=== PATIENT | female | born 1965 | race Native Hawaiian/Other Pacific Islander ===

== ENCOUNTER 2018-11-19 12:06 | Inpatient (IN) | payer OTHER ==
[2018-11-19] VITALS (13 sets, daily range): BP systolic 112–157; BP diastolic 58–99; PULSE 73–88; TEMP 97.5–98.3
[~2018-11-19] VITALS: Ht 154.9 cm; Wt 80.1 kg
[2018-11-19] MEDS ORDERED: ZESTRIL 20MG TA20 MG PO (13:46)
[2018-11-19] MEDS ORDERED: ASPIRIN 81M81 MG/TA2 PO (13:46)
[2018-11-19] MEDS ORDERED: DIABETA 2.5MG2.5 MG PO (13:46)
[2018-11-19] MEDS ORDERED: GLUCOPHAGE500 MG/TAB PO (13:47)
[2018-11-19] MEDS ORDERED: TOPROL XL 50MG50 MG PO (13:47)
[2018-11-19] MEDS ORDERED: LIPITOR20 MG PO (14:11)
--- NOTE | 2018-11-19 15:08 | NUR ---
Pt arrived to room 316 via EMS from [facility]. She is awake and A/Ox4. She is independent in her transfer. Heparin gtt infusing, paused due to protocol from being from another facility. Hep Xa obtained, heparin gtt put on hold per protocol due to lab level being high. She remains NPO for upcoming heart cath. Pt was oriented to room and to staff, expressed understanding. Meds/allergies/pharm reviewed. Pt expressed understanding.
[2018-11-19] MEDS ORDERED: MOBIC 7.5MG7.5 MG (15:26)
--- NOTE | 2018-11-19 16:47 | NUR ---
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
--- NOTE | 2018-11-19 17:04 | NUR ---
ALL MEDICATIONS GIVEN VORB WITH MD. SEE MERGE FOR ALL MEDICATION ADMIN TIMES. SEE MERGE FOR ALL RASS ASSESSMENTS DURING AND POST PROCEDURE. POSITIVE BARBEAU'S TEST IN THE RIGHT WRIST, RADIAL PULSE +2.
--- NOTE | 2018-11-19 18:31 | NUR ---
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 She is awake and alert. Right radial band is free of complications. 13 mL of air in TR band. Pt on bedrest until 1930. Radial pulses 2+. Site is soft and free of hematoma. Family at bedside, updated on plan of care.
--- NOTE | 2018-11-19 18:39 | NUR ---
Patient transported back to Medical bed 316 at 1825. Patient is alert and oriented X3. Patient denies any pain. DEE Barker at bedside. Visualized right radial site with RN. Site is soft and nontender. TR band remains in place with 13 mls of air in the band. Cap refill <3 seconds. Discussed importance of wrist restrictions with patient and family. Telemetry in place. VS stable. Bed in locked and lowest position, call light within reach.
--- NOTE | 2018-11-19 20:35 | NUR ---
Patient assessed at this time. Alert and oriented x 4, and able to make needs known. Denies having pain and discomfort. Peripheral IV to right AC flushed. Site is without redness, warmth, swelling, and pain. Denies having SOB and dyspnea. LS CTA. Respirations even and unlabored. Telemetry monitoring in place. HRR. Capillary refill less than 3 seconds. Non-tenting skin turgor. BSAx4. Abdomen soft and non-tender. No edema. Band to right radial site. Air released per orders. Tolerating well. Voices no questions, needs, or concerns at this time. Call light is within reach.
--- NOTE | 2018-11-19 20:42 | NUR ---
5ml air released from right radial site at 2034. No bleeding noted at this time.
--- NOTE | 2018-11-19 21:39 | NUR ---
5 ml of air removed from band at approximately 2105. Waited, and no bleeding occured for approximately 15 minutes. Removed the remainder fo the air, 3 mls. Bandaid placed to site on right radial. No bleeding to area. Voices no questions, needs, or concerns at this time. In bed with call light within reach.
[2018-11-20 00:05] VITALS: BP 132/76; PULSE 74; TEMP 97.6
[2018-11-20 00:15] VITALS: BP 132/76; PULSE 88; TEMP 98.1
[2018-11-20 01:05] VITALS: BP 128/72; PULSE 82; TEMP 98.6
[2018-11-20 03:49] VITALS: BP 143/72; PULSE 77; TEMP 98.8
[2018-11-20 04:00] VITALS: BP 143/72; PULSE 77; TEMP 98.8
--- NOTE | 2018-11-20 05:43 | NUR ---
Bandaid to heart cath site to right wrist is CDI. Denies having pain and discomfort. Voices no questions, needs, or concerns at this time. Resting in bed with eyes closed. Call light within reach.
--- NOTE | 2018-11-20 07:41 | NUR ---
REPORT RECEIVED FROM DEE HARRISON. PT SLEEPING SOUNDLY IN BED. CALL LIGHT IN REACH. PT'S STAYED OVER NIGHT AT HER BEDSIDE.
--- NOTE | 2018-11-20 09:03 | NUR ---
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 PT DENIED PAIN AND NO CONCERN AT THIS TIME.
[2018-11-20] MEDS ORDERED: ADALAT CC30 MG PO (09:35)
[2018-11-20] MEDS ORDERED: TOPROL XL100 MG PO (09:35)
[2018-11-20] MEDS ORDERED: BRILINTA90 MG PO (09:35)
[2018-11-20] MEDS ORDERED: ZESTRIL40 MG PO (09:36)
[2018-11-20 10:07] LABS: CALCIUM 9.5 mg/dL (8.4-10.2); CREATININE, serum 1.28 (0.52-1.25); POTASSIUM 4.1 mmol/L (3.4-5.0)
--- NOTE | 2018-11-20 10:25 | NUR ---
Plan: To return home in [place] with Yoshi as care support . Assess: Patient reports that she uses [facility] in . Patient reports PCP Dr. Richter. to transport home. Patient denies the use of DME or having a POA. Patient declined setting it up. Patient denies any care concerns. Action: Home, not additional concerns identified.
--- NOTE | 2018-11-20 11:27 | NUR ---
PT RESTING IN BED COMFORTABLY WITH NO CONCERN. PT'S WILL BE DC'D TODAY. CALL LIGHT IN REACH.
--- NOTE | 2018-11-20 12:07 | NUR ---
pt and went over the discharge instruction and able to verbalize understanding of dc instruction. pt signed the dc paper and is going to be escorted out in WC. Call light in reach.
== END 2018-11-20 12:23 | disposition home or self-care (01) | DRG 247 ==
LOC: MEDICAL 12:06
PROVIDERS: ADMIT Hospitalist
PROC: 027034Z Dilation of Coronary Artery, One Artery with Drug-eluting Intraluminal Device, Percutaneous Approach (ICD-10-PCS; principal; 2018-11-19)
PROC: 4A023N7 Measurement of Cardiac Sampling and Pressure, Left Heart, Percutaneous Approach (ICD-10-PCS; 2018-11-19)
PROC: B2101ZZ Fluoroscopy of Single Coronary Artery using Low Osmolar Contrast (ICD-10-PCS; 2018-11-19)
DX: I21.4 Non-ST elevation (NSTEMI) myocardial infarction (principal); N17.9 Acute kidney failure, unspecified; I16.0 Hypertensive urgency; N18.9 Chronic kidney disease, unspecified; E11.42 Type 2 diabetes mellitus with diabetic polyneuropathy; E78.5 Hyperlipidemia, unspecified; M17.0 Bilateral primary osteoarthritis of knee; K21.9 Gastro-esophageal reflux disease without esophagitis; E11.22 Type 2 diabetes mellitus with diabetic chronic kidney disease
CPT/HCPCS: 99222-AI; 99239; C9600; J1644; J2250; J3010; Q9967